=== PATIENT | female | born 1995 | race Caucasian/White ===

== ENCOUNTER 2017-01-30 10:42 | Emergency (ER) | payer OTHER ==
[2017-01-30 10:52] VITALS: BP 116/86; PULSE 98; RESP 18; TEMP 97.9; O2SAT 99
[2017-01-30] MEDS ORDERED: PHENAZOPYRIDINE HCL 200 MG TAB PO ONE (10:52)
--- NOTE | 2017-01-30 11:04 | EDPHY ---
H & P Stated Complaint: burning urination with blood in urine starting this am; chills HPI/ROS: CHIEF COMPLAINT: Dysuria History by patient HISTORY OF PRESENT ILLNESS: 21-year-old girl with a history of frequent urinary tract infections the past presents complaining of feeling like she has urinary tract infection. She complains of dysuria and urgency but no frequency and she has had some hematuria. The symptoms began 3 days ago but got much worse this morning. Her last menstrual period was 2 weeks ago. She denies . She has had some vaginal discharge but that she is not worried about sexually transmitted diseases although she is sexually active. She says she had negative pelvic exam a couple months ago. REVIEW OF SYSTEMS: As in HPI, and all other systems reviewed and are negative Source: Patient - Personal History LMP (Females 10-55): 8-14 Days Ago Current Tetanus/Diphtheria Vaccine: Yes Tetanus Vaccine Date: within 10 years - Medical/Surgical History Hx Asthma: No Hx Chronic Respiratory Disease: No Hx Diabetes: No Hx Cardiac Disease: No Hx Renal Disease: No Hx Cirrhosis: No Hx Alcoholism: No Hx HIV/AIDS: No Hx Splenectomy or Spleen Trauma: No Other PMH: denies - Family History Significant Family History: No pertinent family hx - Social History Smoking Status: Never smoked - Physical Exam Exam: General Appearance: Alert, well-appearing, nontoxic. Eyes: Pupils equal and round no pallor or injection. ENT, Mouth: Mucous membranes moist. Respiratory: Normal, effort, There are no retractions, lungs are clear to auscultation. Cardiovascular: Regular rate and rhythm. Gastrointestinal: Abdomen is soft and nontender, no masses, bowel sounds normal. Back: No CVA tenderness Neurological: Awake, alert and oriented x 3, no pronator drift, normal gait, no pronator drift Skin: Warm and dry, no rashes. Musculoskeletal: Neck is supple nontender. Extremities are symmetrical, full range of motion. Psychiatric: Patient has normal affect, there is no agitation. Constitutional: Initial Vital Signs Temperature (C) 36.6 C 01/30/17 10:49 Heart Rate 98 01/30/17 10:49 Respiratory Rate 18 01/30/17 10:49 Blood Pressure 116/86 H 01/30/17 10:49 O2 Sat (%) 99 01/30/17 10:49 O2 Delivery Mode Room Air Allergies/Adverse Reactions: Sulfa (Sulfonamide Antibiotics) Allergy (Verified 01/30/17 10:49) Home Medications: Medication Instructions Recorded Bcp 06/04/16 Nitrofurantoin Monohyd/M-Cryst 100 mg PO BID #10 capsule 01/30/17 [Macrobid 100 mg Capsule] Medical Decision Making ED Course/Re-evaluation: 21-year-old female presents with symptoms consistent with UTI and urinalysis is positive for infection. Patient be started on Macrobid. She is given pretty min the ED with some symptomatic relief. - Data Points Laboratory Results: 01/30/17 01/30/17 10:55 10:55 Urine Color YELLOW Urine Appearance HAZY Urine pH 6.0 (5.0-7.5) Ur Specific [place] 1.025 (1.002-1.030) Urine Protein 2+ H (NEGATIVE) Urine Ketones TRACE H (NEGATIVE) Urine Blood 3+ H (NEGATIVE) Urine Nitrate POSITIVE H (NEGATIVE) Urine Bilirubin NEGATIVE (NEGATIVE) Urine Urobilinogen 1.0 EU EU (0.2-1.0) Ur Leukocyte Esterase 2+ H (NEGATIVE) Urine RBC 25-50 /hpf H /hpf (0-3) Urine WBC 50-182 /hpf H /hpf (0-3) Ur Epithelial Cells 1+ /lpf /lpf (NONE-1+) Urine Bacteria 2+ /hpf H /hpf (NONE SEEN) Urine Glucose NEGATIVE (NEGATIVE) Urine Test NEGATIVE Medications Given: Discontinued Medications Phenazopyridine HCl (Pyridium) 200 mg PO EDNOW ONE Stop: 01/30/17 10:53 Last Admin: 01/30/17 11:20 Dose: 200 mg Departure - Departure Disposition: Home, Routine, Self-Care Clinical Impression: Urinary tract infection Qualifiers: Urinary tract infection type: acute cystitis Hematuria presence: with hematuria Qualified Code(s): N30.01 - Acute cystitis with hematuria Condition: Good Instructions: Urinary Tract Infection in Women (ED) Additional Instructions: You were seen by Dr. Yolanda Araiza today. Take antibiotics as prescribed Return for any worsening or new concerns. Referrals: Tiffanie Loo MD [Primary Care Provider] - As per Instructions Prescriptions: Nitrofurantoin Monohyd/M-Cryst [Macrobid 100 mg Capsule] 100 mg PO BID #10 capsule
[2017-01-30 11:08] LABS: COLOR YELLOW; LEUKOCYTE ESTERASE,URINE 2+ (NEGATIVE); NITRITE,URINE POSITIVE (NEGATIVE)
[2017-01-30 11:20] LABS: WBC,URINE 50-182 /hpf (0-3)
[2017-01-30 11:21] LABS: BACTERIA 2+ /hpf (NONE SEEN); RBC,URINE 25-50 /hpf (0-3)
== END 2017-01-30 11:40 | disposition home or self-care (01) ==
LOC: CED 10:42
DX: N30.01 Acute cystitis with hematuria (principal); B96.89 Other specified bacterial agents as the cause of diseases classified elsewhere
CPT/HCPCS: 81003-PO; 81015-PO; 81025-PO